=== PATIENT | male | born 2000 | race Caucasian/White ===

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

== ENCOUNTER 2021-07-07 23:45 | Emergency (ER) | payer OTHER ==
[2021-07-08] MEDS ORDERED: ACETAMINOPHEN TAB 500 MG TAB PO STA (00:15)
[2021-07-08] MEDS ORDERED: IBUPROFEN 600 MG TAB PO STA (00:15)
[2021-07-08 00:27] LABS: Glucose,Whole Blood 101 mg/dL (75-99)
--- NOTE | 2021-07-08 00:52 | XR ---
EXAMINATION TYPE: XR chest 2V DATE OF EXAM: 07/08/2021 COMPARISON: NONE HISTORY: Fever TECHNIQUE: 2 view FINDINGS: Heart and mediastinum are normal. Lungs are clear. Diaphragm is normal. Bony thorax appears normal. IMPRESSION: Normal chest.
--- NOTE | 2021-07-08 00:59 | ED ---
General Adult HPI - General Chief complaint: Recheck/Abnormal Lab/Rx Stated complaint: poss reaction to vaccine Time Seen by Provider: 07/08/21 00:00 Source: patient, RN notes reviewed Mode of arrival: ambulatory Limitations: no limitations - History of Present Illness Initial comments: This a 21-year-old male presents emergency Department chief complaint of fever or chills cough congestion body aches. Patient states that he has Wyatt Wyatt vaccine yesterday, states approximately on half ago he started having body aches, shaking chills discomfort. Patient states she did have a headache prior to this and which she took Motrin or 6 hours ago. He has no GI symptoms including nausea vomiting. States is very thirsty no increased urination. D enies any abdominal pain or diarrhea no constipation no sick contacts at home. - Related Data Home Medications Medication Instructions Recorded Confirmed Cetirizine HCl [Zyrtec] 10 mg PO HS 09/13/17 09/13/17 Cholecalciferol (Vitamin D3) 2,000 unit PO HS 09/13/17 09/13/17 [Vitamin D3] Minocycline HCl [Minocin] 100 mg PO HS 09/13/17 09/13/17 Allergies Allergy/AdvReac Type Severity Reaction Status Date / Time No Known Allergies Allergy Verified 07/07/21 23:54 Review of Systems ROS Statement: Those systems with pertinent positive or pertinent negative responses have been documented in the HPI. ROS Other: All systems not noted in ROS Statement are negative. Past Medical History Past Medical History: No Reported History Additional Past Medical History / Comment(s): seasonal allergies History of Any Multi-Drug Resistant Organisms: None Reported Past Surgical History: No Surgical Hx Reported Past Psychological History: No Psychological Hx Reported Smoking Status: Never smoker Past Alcohol Use History: None Reported Past Drug Use History: None Reported General Exam Limitations: no limitations General appearance: alert, in no apparent distress Head exam: Present: atraumatic, normocephalic, normal inspection Eye exam: Present: normal appearance, PERRL, EOMI. Absent: scleral icterus, conjunctival injection, periorbital swelling ENT exam: Present: normal exam, normal oropharynx, mucous membranes moist Neck exam: Present: normal inspection, full ROM. Absent: tenderness, meningismus, lymphadenopathy Respiratory exam: Present: normal lung sounds bilaterally. Absent: respiratory distress, wheezes, rales, rhonchi, stridor Cardiovascular Exam: Present: normal rhythm, tachycardia, normal heart sounds. Absent: systolic murmur, diastolic murmur, rubs, gallop, clicks GI/Abdominal exam: Present: soft, normal bowel sounds. Absent: distended, tenderness, guarding, rebound, rigid Neurological exam: Present: alert, oriented X3 Skin exam: Present: warm, dry, intact, normal color. Absent: rash Course Vital Signs 07/07/21 23:53 Temperature 100.5 F H Pulse Rate 125 H Respiratory 20 Rate Blood Pressure 150/84 O2 Sat by Pulse 100 Oximetry Medical Decision Making - Medical Decision Making 21-year-old presented for fever. Patient symptoms related to cocaine vaccine. Patient will be discharged in stable condition advised to continue Tylenol Motrin return for any worsening changes symptoms. - Lab Data Lab Results 07/08/21 07/08/21 Range/Units 00:26 00:27 POC Glucose (mg/dL) 101 H (75-99) mg/dL POC Glu Time Study Observer ID Sis Verduzco Coronavirus (PCR) Not Detected (Not Detectd) Disposition Clinical Impression: Fever after COVID-19 vaccination Disposition: HOME SELF-CARE Condition: Stable Instructions (If sedation given, give patient instructions): Fever in Adults (ED) Additional Instructions: Please return to the Emergency Department if symptoms worsen or any other concerns. Is patient prescribed a controlled substance at d/c from ED?: No Referrals: Thang Marks MD [Primary Care Provider] - 1-2 days Time of Disposition: 00:58
[2021-07-08 01:10] VITALS: BP 138/88; PULSE 107; RESP 16; TEMP 100.1
== END 2021-07-08 01:10 | disposition home or self-care (01) ==
LOC: EC 23:45
DX: R50.83 Postvaccination fever (principal); Z20.822 Contact with and (suspected) exposure to COVID-19
CPT/HCPCS: 36415; 71046; 87635; 99283

== ENCOUNTER 2022-08-14 16:59 | Emergency (ER) | payer OTHER ==
[2022-08-14 17:05] VITALS: BP 153/103; PULSE 109; RESP 16; TEMP 98
[2022-08-14] MEDS ORDERED: SODIUM CHLORIDE 0.9% 1,000 ML IV STA (18:08)
--- NOTE | 2022-08-14 18:11 | CT ---
EXAMINATION TYPE: CT brain wo con DATE OF EXAM: 08/14/2022 COMPARISON: 08/06/2015 HISTORY: headache, vision loss CT DLP: 1177.4 mGycm Automated exposure control for dose reduction was used. Ventricles have normal size. There is no mass effect or midline shift. No sign of intracranial hemorr jonas. No evidence of cerebral edema. Sella turcica appears normal. Calvarium is intact. IMPRESSION: Negative unenhanced head CT scan
--- NOTE | 2022-08-14 18:21 | ED ---
General Adult HPI - General Chief complaint: Neuro Symptoms/Deficit Stated complaint: lt eye vision loss, head pain Time Seen by Provider: 08/14/22 17:48 Source: patient, RN notes reviewed Mode of arrival: ambulatory Limitations: no limitations - History of Present Illness Initial comments: This is a pleasant 22-year-old male who presents to emergency department complaining of pain above his left eye which has been present for about one week. Patient states he thought he had a sinus infection" going to his regular doctor as prescribed antibiotics and corticosteroids. His about 2 days ago started getting blurred vision and some intermittent tingling involving the left importer and left facial area. He also ascertains that he gets occasional tingling into the area of the left shoulder. Patient states the pain has continued despite antibiotic therapy and corticosteroid therapy. Taking that he has blurred vision involving the left eye. Patient states he went to the anesthesiologist physician yesterday at Dr. Baez's office. Patient states that his eye exam was normal. Apparently the anesthesiologist physician did discuss this with the wireless internet installer. There was no abnormal finding. However, patient is continuing to complain of blurred vision involving the left eye today. no fever or chills, no changes in hearing, no sore throat or difficulty with speech, no neck pain, no chest pain or shortness of breath, no abdominal pain, no nausea or vomiting, no changes in urination or bowel movements, no numbness or tingling, no extremity pain, no skin rashes or lesions. No vertigo symptoms. No numbness or tingling otherwise. No balance or gait disturbance. No confusion. Past medical, surgical, social, and family history reviewed. - Related Data Home Medications Medication Instructions Recorded Confirmed No Known Home Medications 08/14/22 08/14/22 Allergies Allergy/AdvReac Type Severity Reaction Status Date / Time No Known Allergies Allergy Verified 08/14/22 17:03 Review of Systems ROS Statement: Those systems with pertinent positive or pertinent negative responses have been documented in the HPI. ROS Other: All systems not noted in ROS Statement are negative. Past Medical History Past Medical History: No Reported History Additional Past Medical History / Comment(s): seasonal allergies History of Any Multi-Drug Resistant Organisms: None Reported Past Surgical History: No Surgical Hx Reported Past Psychological History: No Psychological Hx Reported Smoking Status: Never smoker Past Alcohol Use History: None Reported Past Drug Use History: None Reported General Exam Limitations: no limitations General appearance: alert, in no apparent distress Head exam: Present: atraumatic, normocephalic, normal inspection Eye exam: Present: normal appearance, PERRL, EOMI. Absent: scleral icterus, conjunctival injection, periorbital swelling ENT exam: Present: normal exam, normal oropharynx, mucous membranes dry, mucous membranes moist, TM's normal bilaterally, normal external ear exam, other (No temporal tenderness to palpation. No palpable cord. No rashes or lesions) Neck exam: Present: normal inspection, full ROM. Absent: tenderness, meningismus, lymphadenopathy Respiratory exam: Present: normal lung sounds bilaterally. Absent: respiratory distress, wheezes, rales, rhonchi, stridor, chest wall tenderness, accessory muscle use Cardiovascular Exam: Present: regular rate, normal rhythm, normal heart sounds. Absent: systolic murmur, diastolic murmur, rubs, gallop, clicks GI/Abdominal exam: Present: soft, normal bowel sounds. Absent: distended, tenderness, guarding, rebound, rigid Extremities exam: Present: normal inspection, full ROM, normal capillary refill. Absent: tenderness, pedal edema, joint swelling, calf tenderness Back exam: Present: normal inspection Neurological exam: Present: alert, oriented X3, CN II-XII intact Psychiatric exam: Present: normal affect, normal mood Skin exam: Present: warm, dry, intact, normal color. 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 These laboratory values were done at [facility]. Ordered by Dr. Marks. Patient symptomology wants further investigation. We'll discuss with ED attending physician. Note that the patient is tachycardic and hypertensive. Patient was told to return to the ER for any signs or symptoms worsen. Told to return immediately if any other problems arise. All questions answered. Treatment plan discussed. Patient in agreement Every effort has been made to ensure accuracy of this dictation. However, due to the limitations of electronic medical records and dictation devices, errors in charting still occur. Going to have the patient follow up with ophthalmology and neurology on Tuesday. Patient's imaging was negative for any acute pathology here. This was done both with and without contrast. Patient was neurologically intact but essentially the same symptoms at discharge. Intermittent paresthesias to left facial area. 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 There was no evidence of rashes or lesions consistent with herpes zoster. Patient had no facial weakness consistent with Mederos's palsy. Patient understands the need for follow-up. Patient understands the treatment plan. All questions answered. The case was discussed in detail with ED attending physician. Presentation, findings, treatment plan discussed in detail. Supervising physician, Dr. Warner - Lab Data Result diagrams: 08/14/22 18:55 08/14/22 18:55 Lab Results 08/14/22 08/14/22 08/14/22 Range/Units 18:55 18:55 18:55 WBC 7.0 (3.8-10.6) k/uL RBC 4.85 (4.30-5.90) m/uL Hgb 14.6 (13.0-17.5) gm/dL Hct 43.5 (39.0-53.0) % MCV 89.8 (80.0-100.0) fL MCH 30.1 (25.0-35.0) pg MCHC 33.5 (31.0-37.0) g/dL RDW 12.6 (11.5-15.5) % Plt Count 243 (150-450) k/uL MPV 8.4 Neutrophils % 55 % Lymphocytes % 32 % Monocytes % 9 % Eosinophils % 1 % Basophils % 1 % Neutrophils # 3.8 (1.3-7.7) k/uL Lymphocytes # 2.2 (1.0-4.8) k/uL Monocytes # 0.7 (0-1.0) k/uL Eosinophils # 0.1 (0-0.7) k/uL Basophils # 0.1 (0-0.2) k/uL ESR 8 (0-15) mm/hr PT 10.1 (9.0-12.0) sec INR 0.9 (<1.2) APTT 25.7 (22.0-30.0) sec Sodium 138 (137-145) mmol/L Potassium 4.1 (3.5-5.1) mmol/L Chloride 99 (98-107) mmol/L Carbon Dioxide 24 (22-30) mmol/L Anion Gap 15 mmol/L BUN 13 (9-20) mg/dL Creatinine 0.98 (0.66-1.25) mg/dL Est GFR (CKD-EPI)AfAm >90 (>60 ml/min/1.73 sqM) Est GFR (CKD-EPI)NonAf >90 (>60 ml/min/1.73 sqM) Glucose 93 (74-99) mg/dL Calcium 10.0 (8.4-10.2) mg/dL Total Bilirubin 0.3 (0.2-1.3) mg/dL AST 27 (17-59) U/L ALT 37 (4-49) U/L Alkaline Phosphatase 76 (38-126) U/L C-Reactive Protein <0.5 (<1.0) mg/dL Total Protein 7.7 (6.3-8.2) g/dL Albumin 4.7 (3.5-5.0) g/dL TSH 1.290 (0.465-4.680) mIU/L - Radiology Data Radiology results: report reviewed, image reviewed Disposition Clinical Impression: Paresthesia, Visual disturbance, Headache, Elevated blood pressure reading Disposition: HOME SELF-CARE Condition: Good Instructions (If sedation given, give patient instructions): Paresthesia (ED), Blurred Vision (ED), Acute Headache (ED), Hypertension (ED) Additional Instructions: Call first thing Tuesday morning to schedule an appointment with the neurologist. Also, recheck with the wireless internet installer. Follow-up with your regular physician as directed. Return to the ER immediately if any symptoms worsen, new symptoms arise, or any other problems develop. Is patient prescribed a controlled substance at d/c from ED?: No Referrals: Thang Marks MD [Primary Care Provider] - 1-2 days Hailee Mercado MD [STAFF PHYSICIAN] - 08/16/22 8:00 am Phill Baez MD [STAFF PHYSICIAN] - 08/16/22 8:00 am Time of Disposition: 22:16
[2022-08-14] MEDS ORDERED: RX INFO: IV CONTRAST WAS GIVEN 1 EACH MISC MISCELLANE PRN (18:39)
[2022-08-14 19:08] LABS: Basophils # (A) 0.1 k/uL (0-0.2); Basophils % (A) 1 %; Eosinophils # (A) 0.1 k/uL (0-0.7); Eosinophils % (A) 1 %; HCT 43.5 % (39.0-53.0); HGB 14.6 gm/dL (13.0-17.5); Lymphocytes # (A) 2.2 k/uL (1.0-4.8); Lymphocytes % (A) 32 %; MCH 30.1 pg (25.0-35.0); MCHC 33.5 g/dL (31.0-37.0); MCV 89.8 fL (80.0-100.0); Mean Platelet Volume 8.4; Monocytes # (A) 0.7 k/uL (0-1.0); Monocytes % (A) 9 %; Neutrophils # (A) 3.8 k/uL (1.3-7.7); Neutrophils % (A) 55 %; Platelet Count 243 k/uL (150-450); RBC 4.85 m/uL (4.30-5.90); RDW 12.6 % (11.5-15.5)
[2022-08-14 19:17] LABS: INR 0.9 (<1.2); Partial Thromboplastin Time 25.7 sec (22.0-30.0); Prothrombin Time 10.1 sec (9.0-12.0)
[2022-08-14 19:31] LABS: ALT 37 U/L (4-49); AST 27 U/L (17-59); African American GFR (CKD) >90 (>60 ml/min/1.73 sqM); Albumin 4.7 g/dL (3.5-5.0); Alkaline Phosphatase 76 U/L (38-126); Anion Gap 15 mmol/L; Blood Urea Nitrogen 13 mg/dL (9-20); C Reactive Protein <0.5 mg/dL (<1.0); Carbon Dioxide 24 mmol/L (22-30); Chloride 99 mmol/L (98-107); Glucose 93 mg/dL (74-99); Non-African American GFR(CKD) >90 (>60 ml/min/1.73 sqM); Potassium 4.1 mmol/L (3.5-5.1); Sodium 138 mmol/L (137-145); Total Bilirubin 0.3 mg/dL (0.2-1.3); Total Protein 7.7 g/dL (6.3-8.2)
--- NOTE | 2022-08-14 20:02 | CT ---
EXAMINATION TYPE: CT brain w con DATE OF EXAM: 08/14/2022 COMPARISON: 08/14/2022 HISTORY: Sinus pain with vision change/paresthesia CT DLP: 1165.4 mGycm Automated exposure control for dose reduction was used. CONTRAST: Performed with IV Contrast, patient injected with 100ml mL of Isovue 370. Images obtained of the brain with the IV contrast. Ventricles have fairly normal size. There is no mass effect or midline shift. No sign of intracranial hemorrhage. Calvarium is intact. No pathologic enhancement. There is normal enhancement of the venou s sinuses. IMPRESSION: Negative enhanced head CT scan.
[2022-08-14 20:11] LABS: Erythrocyte Sedimentation Rate 8 mm/hr (0-15)
[2022-08-16 09:41] LABS: Lyme IgG/IgM 1.36 Index
== END 2022-08-14 22:39 | disposition home or self-care (01) ==
LOC: EC 16:59
DX: R20.2 Paresthesia of skin (principal); R51.9 Headache, unspecified; H53.9 Unspecified visual disturbance; R03.0 Elevated blood-pressure reading, without diagnosis of hypertension
CPT/HCPCS: 36415; 80053; 85652; 84443; 85025; 85610; 85730; 86140; 86618; 70450; 70460; 99284; 96360; Q9967

== ENCOUNTER 2024-10-21 11:11 | Emergency (ER) | payer OTHER ==
[2024-10-21] MEDS: MORPHINE SULFATE 4 MG/ML SYRINGE IVP STA ×2 (11:36→13:02)
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
[2024-10-21 12:03] LABS: ALT 23 U/L (4-49); AST 24 U/L (17-59); African American GFR (CKD) >90 (>60 ml/min/1.73 sqM); Albumin 4.5 g/dL (3.5-5.0); Alcohol <10 mg/dL; Alkaline Phosphatase 63 U/L (38-126); Anion Gap 6 mmol/L; Blood Urea Nitrogen 11 mg/dL (9-20); Calcium 9.7 mg/dL (8.4-10.2); Carbon Dioxide 25 mmol/L (22-30); Chloride 104 mmol/L (98-107); Glucose 133 mg/dL (74-99); Non-African American GFR(CKD) >90 (>60 ml/min/1.73 sqM); Potassium 3.8 mmol/L (3.5-5.1); Sodium 135 mmol/L (137-145); Total Bilirubin 0.8 mg/dL (0.2-1.3)
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
[2024-10-21] MEDS: KETOROLAC 15 MG/ML 1 ML VIAL IVP STA ×2 (13:00→15:00)
[2024-10-21] MEDS: LIDOCAINE 4% PATCH TOPICAL ONE (13:00)
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
[2024-10-21 14:12] LABS: Basophils % (A) 0 %; Eosinophils # (A) 0.1 k/uL (0-0.7); Eosinophils % (A) 1 %; HGB 13.9 gm/dL (13.0-17.5); Lymphocytes % (A) 5 %; MCH 30.5 pg (25.0-35.0); MCHC 33.2 g/dL (31.0-37.0); Mean Platelet Volume 8.5; Monocytes # (A) 1.1 k/uL (0-1.0); Monocytes % (A) 6 %; Neutrophils # (A) 16.8 k/uL (1.3-7.7); Neutrophils % (A) 88 %; Platelet Count 258 k/uL (150-450); RBC 4.56 m/uL (4.30-5.90); RDW 12.3 % (11.5-15.5); WBC 19.2 k/uL (3.8-10.6)
[2024-10-21] MEDS: SODIUM CHLORIDE 0.9% 1,000 ML IV STA ×2 (14:46→16:35)
[2024-10-21] MEDS: ORPHENADRINE 30 MG/ML 2 ML VIAL IVP STA (14:58)
[2024-10-21] MEDS: HYDROmorphone 0.5 MG/0.5 ML SYRINGE IVP STA (15:00)
[2024-10-21 15:38] LABS: INR 1.1 (<1.2); Partial Thromboplastin Time 23.5 sec (22.0-30.0); Prothrombin Time 11.6 sec (10.0-12.5)
[2024-10-21] MEDS: HYDROmorphone 1 MG/ML 1 ML SYRINGE IVP STA (16:23)
[2024-10-21] MEDS: AMOXIC-POT CLAV 875-125MG 1 EACH TAB PO STA (16:29)
[2024-10-21] MEDS: ONDANSETRON 4 MG ODT STARTER PACK 2 TAB BTL PO STA (18:00)
[2024-10-21] MEDS: AMOXIC-POT CLAV 875MG STARTER PACK 2 TAB BTL PO STA (18:01)
[2024-10-21] MEDS: ACET/COD 300 MG/30 MG STARTER PACK 6 TAB BTL PO STA (18:01)
[2024-10-21] MEDS: IBUPROFEN 600 MG STARTER PACK 4 TAB BTL PO STA (18:02)
[2024-10-21] MEDS: CYCLOBENZAPRINE 10MG STARTER 3 TAB BTL PO STA (18:03)
[2024-10-21] MEDS: ONDANSETRON ODT 4 MG TAB PO STA (18:04)
[2024-10-21 18:21] VITALS: TEMP 97.8
[2024-10-21 18:43] VITALS: BP 110/73; PULSE 81; RESP 16
== END 2024-10-21 18:43 | disposition home or self-care (01) ==
LOC: EC 11:11
DX: S02.2XXA Fracture of nasal bones, initial encounter for closed fracture (principal); S20.211A Contusion of right front wall of thorax, initial encounter; V49.40XA Driver injured in collision with unspecified motor vehicles in traffic accident, initial encounter; Y92.410 Unspecified street and highway as the place of occurrence of the external cause
CPT/HCPCS: 99285; 96374; 96375 ×3; 96376 ×3; 96361 ×2; 36415; 86900; 86901; 80053; 83605; 84484; 85025; 85610; 85730; 86850; 80320; 73030; 73090; 72125; 70486; 70450; 71260; 74177; J2270; J2360; J1171 ×2; J1885; S0119; Q9967